=== PATIENT | male | born 1955 | race Caucasian/White ===

== ENCOUNTER 2021-01-12 02:55 | Emergency (ER) | payer MEDICARE, MEDICAID ==
[~2021-01-12] VITALS: Ht 170.2 cm; Wt 97.0 kg
[2021-01-12 02:57] VITALS: BP 150/90
[2021-01-12] MEDS ORDERED: IBUPROFEN 400MG TABLET PO ONE (03:15)
[2021-01-12] MEDS ORDERED: ACETAMINOPHEN 325MG TABLET PO ONE (03:15)
[2021-01-12] MEDS ORDERED: TOPUD MT (03:53)
== END 2021-01-12 04:07 | disposition home or self-care (01) ==
LOC: ER 02:55
DX: M25.522 Pain in left elbow (principal); E11.9 Type 2 diabetes mellitus without complications; I10 Essential (primary) hypertension; R51.9 Headache, unspecified; Z88.6 Allergy status to analgesic agent; Z88.8 Allergy status to other drugs, medicaments and biological substances; Z79.899 Other long term (current) drug therapy
CPT/HCPCS: 73080; 99283